=== PATIENT | male | born 2000 | race African-American/Black ===

== ENCOUNTER 2021-02-08 02:58 | Emergency (ER) | payer SELFPAY ==
[~2021-02-08 02:58] MED LIST: Sodium Chloride 0.9% 1,000 ML IV ONE
[2021-02-08] MEDS ORDERED: ceFAZolin 1 GM in Premix Bag 1 BAG IV ONE (03:24)
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
[2021-02-08 04:34] LABS: BLOOD UREA NITROGEN,BUN 12 mg/dL (7.0-18.0); CARBON DIOXIDE,CO2 22.8 mmol/L (21.0-32.0); CHLORIDE,CL 103 mmol/L (98-107); GLUCOSE RANDOM 135 mg/dL (74-106); POTASSIUM,K 3.5 mmol/L (3.5-5.1); SODIUM,NA 140 mmol/L (136-148)
== END 2021-02-08 03:40 ==
LOC: MW.ED 02:58
DX: S41.031A Puncture wound without foreign body of right shoulder, initial encounter (principal); S31.030A Puncture wound without foreign body of lower back and pelvis without penetration into retroperitoneum, initial encounter; S81.032A Puncture wound without foreign body, left knee, initial encounter; S51.831A Puncture wound without foreign body of right forearm, initial encounter; W34.00XA Accidental discharge from unspecified firearms or gun, initial encounter
CPT/HCPCS: 36415; 36430; 51702; 71045; 72170; 73560; 74018; 80053; 80307; 85025; 85730; 86850; 86900; 86901; 86920; 86921; 86922; 99291; G0390; J7030; P9016